=== PATIENT | female | born 1990 ===

== ENCOUNTER 2019-03-27 01:08 | Inpatient (IN) ==
[2019-03-27 01:51] LABS: Apearance,Urine CLEAR (Clear); Bilirubin,Urine Negative (Negative); Blood, Urine Negative (Negative); Glucose,Urine (UA) Negative (Negative); Ketones,Urine Negative (Negative); Mucus,Urine Occasional /LPF (Occasional); Nitrite,Urine Negative (Negative); Protein,Urine 100 MG/DL; RBC,Urine 6 /HPF (0-4); Squamous Epithelial Cell,Urine Occasional /HPF (0-10); Urine Color Yellow (Yellow); Urine Specific Gravity 1.021 (1.001-1.035); Urine Urobilinogen < 2.0 EU/DL (0.2-1.0); WBC,Urine 1 /HPF (0-6)
[2019-03-27] MEDS ORDERED: MEPERIDINE 50 MG/1 ML VIAL IV ONE (02:58)
[2019-03-27] MEDS ORDERED: LACTATED RINGERS 1,000 ML IV ONE (02:59)
[2019-03-27] MEDS ORDERED: MEPERIDINE 25 MG/1 ML VIAL ONE ×2 (03:24)
[2019-03-27] MEDS ORDERED: ONDANSETRON 4 MG/2 ML VIAL IV PRN ×2 (03:32→19:08)
[2019-03-27] MEDS ORDERED: FAMOTIDINE 20 MG/2 ML VIAL IV ONE (08:50)
[2019-03-27] MEDS ORDERED: CITRIC ACID/SODIUM CITRATE 30 ML UDCUP PO ONE (08:50)
[2019-03-27] MEDS ORDERED: MEPERIDINE 25 MG/1 ML VIAL IV ONE (08:51)
[2019-03-27] MEDS ORDERED: LACTATED RINGERS 1,000 ML IV SCH ×3 (09:00→19:30)
[2019-03-27 09:16] LABS: Basophils % 0.4 % (0.0-0.8); Eosinophils % 0.3 % (0.00-10.9); Hemoglobin 12.1 GM/DL (12.0-16.0); Immature Granulocytes % 0.5 %; Immature Granulocytes Absolute 0.05 #; Lymphocytes # 1.4 10*3/uL (1.4-4.0); Lymphocytes % 14.1 % (21.3-54.2); Mean Corpuscular HGB Conc 30.3 GM/DL (32-36); Mean Corpuscular Volume 80.2 FL (87-102); Mean Platelet Volume 10.5 FL (9.6-12.0); Monocytes % 4.2 % (1.7-12.7); Neutrophils % 80.5 % (38.7-73.9); Platelet Count 317 T/CUMM (130-400); Red Blood Count 4.99 MC/CUMM (3.8-5.5); Red Cell Distribution Width 15.3 % (9.3-17.3); White Blood Count 9.8 T/CUMM (4-12)
[2019-03-27 09:43] LABS: Albumin 2.6 G/DL (3.4-5.0); Bilirubin,Total 0.4 MG/DL (0.2-1.0); Total Protein 7.4 G/DL (6.4-8.3)
[2019-03-27] MEDS ORDERED: TERBUTALINE 1 MG/1 ML VIAL SUBCUT PRN (10:37)
[2019-03-27] MEDS ORDERED: OXYTOCIN/LR 30 UNIT/1,000 ML BAG IV ONE (10:46)
[2019-03-27] MEDS ORDERED: ceFAZolin 3,000 MG in SYRINGE 1 EACH IV ONE (11:30)
[2019-03-27] MEDS ORDERED: MORPHINE 10 MG/10 ML VIAL ONE (11:57)
[2019-03-27] MEDS ORDERED: BUPIVACAINE SPINAL 0.75% 2 ML AMP SPINAL ONE (11:57)
[2019-03-27] MEDS ORDERED: EPINEPHrine 1 MG/ML VIAL ONE (11:58)
[2019-03-27] MEDS ORDERED: DEXAMETHASONE 4 MG/1 ML VIAL ONE (11:58)
[2019-03-27] MEDS ORDERED: PHENYLEPHRINE 1 MG/10 ML SYRINGE IV ONE (11:58)
[2019-03-27] MEDS ORDERED: BUPIVACAINE 0.5% 50 ML VIAL ONE (11:59)
[2019-03-27] MEDS ORDERED: OXYTOCIN 10 UNIT/ML VIAL IM ONE (12:00)
[2019-03-27 13:53] LABS: Cord Arterial Blood HCO3 20.5 MMOL/L; Cord Venous Blood HCO3 22.8 MMOL/L; Cord Venous Blood PCO2 42.9 MMHG; Cord Venous Blood PO2 27.4 MMHG
[2019-03-27 14:06] LABS: Apearance,Urine Slightly Hazy (Clear); Bacteria,Urine Occasional /HPF (Few); Bilirubin,Urine Negative (Negative); Blood, Urine Small mg/dL (Negative); Glucose,Urine (UA) Negative (Negative); Ketones,Urine 5 mg/dL (Negative); Mucus,Urine Occasional /LPF (Occasional); Nitrite,Urine Negative (Negative); Protein,Urine Negative; RBC,Urine 7 /HPF (0-4); Squamous Epithelial Cell,Urine Occasional /HPF (0-10); Urine Color Yellow (Yellow); Urine Specific Gravity 1.026 (1.001-1.035); Urine Urobilinogen < 2.0 EU/DL (0.2-1.0); WBC,Urine 2 /HPF (0-6)
[2019-03-27] MEDS ORDERED: MIDAZOLAM 2 MG/2 ML VIAL ONE (14:20)
[2019-03-27] MEDS ORDERED: OXYTOCIN/LR 20 UNIT/1,000 ML BAG IV ONE ×2 (14:30→19:08)
[2019-03-27] MEDS ORDERED: IBUPROFEN 800 MG TABLET PO PRN (16:57)
[2019-03-27] MEDS ORDERED: SIMETHICONE CHEW 80 MG TABLET PO PRN (19:08)
[2019-03-27] MEDS ORDERED: ACETAMINOPHEN 325 MG TABLET PO PRN (19:08)
[2019-03-27] MEDS ORDERED: RHO(D) IMMUNE GLOBULIN 300 MCG SYRINGE IM ONE (19:08)
[2019-03-27] MEDS: ceFAZolin 1,000 MG in SYRINGE 1 EACH IV SCH (21:00)
[2019-03-27] MEDS: DOCUSATE SODIUM 100 MG CAPSULE PO SCH (21:00)
[2019-03-27] MEDS ORDERED: ceFAZolin 1,000 MG in SYRINGE 1 EACH IV SCH (22:00)
[2019-03-27 22:10] LABS: Basophils % 0.2 % (0.0-0.8); Hematocrit 33.9 VOL% (35.7-47.0); Hemoglobin 10.2 GM/DL (12.0-16.0); Immature Granulocytes % 0.6 %; Immature Granulocytes Absolute 0.07 #; Lymphocytes % 7.7 % (21.3-54.2); Mean Corpuscular HGB Conc 30.1 GM/DL (32-36); Mean Platelet Volume 10.3 FL (9.6-12.0); Neutrophils % 87.5 % (38.7-73.9); Platelet Count 292 T/CUMM (130-400); Red Blood Count 4.24 MC/CUMM (3.8-5.5); Red Cell Distribution Width 15.5 % (9.3-17.3); White Blood Count 12.3 T/CUMM (4-12)
[2019-03-28] MEDS: IBUPROFEN 800 MG TABLET PO PRN ×2 (01:52→15:45)
[2019-03-28] MEDS: ceFAZolin 1,000 MG in SYRINGE 1 EACH IV SCH (04:00)
[2019-03-28 04:54] LABS: Basophils % 0.2 % (0.0-0.8); Eosinophils % 0.2 % (0.00-10.9); Hematocrit 27.8 VOL% (35.7-47.0); Hemoglobin 8.6 GM/DL (12.0-16.0); Immature Granulocytes % 0.5 %; Immature Granulocytes Absolute 0.05 #; Lymphocytes # 1.7 10*3/uL (1.4-4.0); Lymphocytes % 15.6 % (21.3-54.2); Mean Corpuscular HGB Conc 30.9 GM/DL (32-36); Mean Corpuscular Volume 79.7 FL (87-102); Monocytes % 6.1 % (1.7-12.7); Neutrophils % 77.4 % (38.7-73.9); Platelet Count 270 T/CUMM (130-400); Red Blood Count 3.49 MC/CUMM (3.8-5.5); Red Cell Distribution Width 15.3 % (9.3-17.3)
[2019-03-28] MEDS ORDERED: IRON (CARBONYL) 45 MG TABLET PO SCH (09:00)
[2019-03-28] MEDS: FERROUS SULFATE 325 MG TABLET PO SCH ×2 (09:17→20:59)
[2019-03-28] MEDS: DOCUSATE SODIUM 100 MG CAPSULE PO SCH ×2 (09:17→21:00)
[2019-03-28] MEDS: METOCLOPRAMIDE 10 MG TABLET PO SCH ×3 (09:17→23:22)
[2019-03-28] MEDS: MULTIVITAMIN (PRENATAL) TABLET PO SCH (09:17)
[2019-03-28] MEDS: MAGNESIUM HYDROXIDE SUSP 30 ML UDCUP PO PRN (09:18)
[2019-03-29] MEDS: IBUPROFEN 800 MG TABLET PO PRN ×3 (02:21→22:32)
[2019-03-29] MEDS ORDERED: BISACODYL 10 MG SUPP RECTAL PRN (08:07)
[2019-03-29] MEDS: METOCLOPRAMIDE 10 MG TABLET PO SCH ×2 (08:12→18:52)
[2019-03-29] MEDS: MAGNESIUM HYDROXIDE SUSP 30 ML UDCUP PO PRN (08:12)
[2019-03-29] MEDS: DOCUSATE SODIUM 100 MG CAPSULE PO SCH ×2 (08:12→20:53)
[2019-03-29] MEDS: MULTIVITAMIN (PRENATAL) TABLET PO SCH (08:12)
[2019-03-29] MEDS: FERROUS SULFATE 325 MG TABLET PO SCH ×2 (08:12→20:53)
[2019-03-30] MEDS: MULTIVITAMIN (PRENATAL) TABLET PO SCH (09:17)
[2019-03-30] MEDS: FERROUS SULFATE 325 MG TABLET PO SCH (09:17)
[2019-03-30] MEDS: DOCUSATE SODIUM 100 MG CAPSULE PO SCH (09:17)
[2019-03-30] MEDS: IBUPROFEN 800 MG TABLET PO PRN (09:17)
[2019-03-30] MEDS ORDERED: oxyCODONE/ACETAMINOPHEN 5-325 MG TABLET PO PRN (09:21)
[2019-03-30 11:23] VITALS: BP 134/86
== END 2019-03-30 14:05 | disposition home or self-care (01) | DRG 540 ==
LOC: N.LDOUT 01:08 → N.LD 01:13 → N.OB 16:34
PROVIDERS: ADMIT Obstetrics & Gynecology; ATTEND Obstetrics & Gynecology